=== PATIENT | female | born 1975 | race African-American/Black ===

== ENCOUNTER 2019-08-30 14:00 | Emergency (ER) | payer BC, SELFPAY ==
[2019-08-30 15:05] LABS: #Eosinphils 0.1 thou/uL (0.0-0.7); #Lymphocytes 1.9 thou/uL (1.20-3.40); #Monocytes 0.6 thou/uL (0.11-0.59); #Neutrophils 3.9 thou/uL (1.40-6.50); %Basophils 0.5 % (0.0-1.0); %Eosinophils 1.9 % (0.0-10.0); %Monocytes 8.6 % (0.0-10.0); %Neutrophils 60.1 % (42.0-75.0); Hemoglobin 12.5 g/dL (12.0-16.0); Mean Corpuscular HGB CONC 28.9 g/dL (32.0-36.0); Mean Corpuscular Volume 82.8 fL (78.0-98.0); Mean Platelet Volume 8.1 fL (7.4-10.4); Platelet Count 271 thou/uL (130-400); RBC Distribution Width 14.1 % (11.5-14.5); Red Blood Cell (RBC) Count 5.24 mill/uL (4.20-5.40); White Blood Cell (WBC) Count 6.6 thou/uL (4.8-10.8)
[2019-08-30 15:07] LABS: BHCG - Serum Negative (NEGATIVE); Elliptocytes SLIGHT = 2-5 cells (100X) (0-1/hpf); MDiff Complete? YES; Pregs Control Background? CLEAR/WHITE (CLR/WHITE); Pregs Control Bar Appear? YES (CONTROL BAR); Tear Drops SLIGHT = 2-5 cells (100X) (0-1/hpf)
[2019-08-30 15:12] LABS: ALT (SGPT) 10 U/L (8-55); AST (SGOT) 16 U/L (5-34); Alkaline Phosphatase 75 U/L (40-110); Anion Gap 13 mmol/L (10-20); BUN (Urea Nitrogen) 10 mg/dL (7.0-18.7); Bilirubin, Total 0.5 mg/dL (0.2-1.2); Calc. Creatinine Clearance 0 mL/min (70-130); Calcium 9.1 mg/dL (7.8-10.44); Carbon Dioxide 22 mmol/L (22-29); Chloride 108 mmol/L (98-107); Estimated GFR-MDRD Greater than 90; Globulin 3.5 g/dL (2.4-3.5); Glucose 123 mg/dL (70-105); Potassium 3.7 mmol/L (3.5-5.1); Protein, Total 7.5 g/dL (6.0-8.3); Sodium 139 mmol/L (136-145)
[2019-08-30] MEDS ORDERED: Aspirin Chewable 81 MG TAB ONE (15:19)
[2019-08-30] MEDS ORDERED: Dexamethasone 4 mg/ml Vial ONE (16:06)
[2019-08-30] MEDS ORDERED: Dexamethasone 4 MG TAB ONE (16:10)
--- NOTE | 2019-08-30 17:30 | RAD ---
PORTABLE CHEST: Date: 08-29-2019 An AP portable film at 1511 is compared with a 11-30-15 study. FINDINGS: The heart size is unchanged. There is no vascular congestion, edema, or pleural effusion. The lungs a re clear. No infiltrates were appreciated. The mediastinum appears normal and the trachea is midline. IMPRESSION: No acute thoracic finding. POS: HOME
== END 2019-08-30 16:35 | disposition home or self-care (01) ==
LOC: BURERS 14:00
DX: J18.9 Pneumonia, unspecified organism (principal); Z20.828 Contact with and (suspected) exposure to other viral communicable diseases
CPT/HCPCS: 36415; 71045; 80053; 83880; 84484; 84703; 85025; 85379; 93005; J1100; J8540